=== PATIENT | male | born 1985 | race African-American/Black ===

== ENCOUNTER 2020-06-05 07:52 | Emergency (ER) | payer MEDICAID ==
[~2020-06-05] VITALS: Ht 185.4 cm; Wt 82.0 kg
[2020-06-05 07:54] VITALS: BP 148/88
[2020-06-05] MEDS ORDERED: ALBUTEROL (0.083%) 2.5MG/3ML NEB HHN STA (08:18)
[2020-06-05] MEDS ORDERED: PREDNISONE 20MG TABLET PO STA (08:18)
[2020-06-05] MEDS ORDERED: IPRATROPIUM BROMIDE (0.02%) 0.5MG/2.5ML NEB HHN STA (08:18)
[2020-06-05] MEDS ORDERED: ALBU6.7H9 INH (09:47)
[2020-06-05] MEDS ORDERED: P20 MT (09:47)
== END 2020-06-05 09:57 | disposition home or self-care (01) ==
LOC: ER 08:08
DX: J45.901 Unspecified asthma with (acute) exacerbation (principal); F17.210 Nicotine dependence, cigarettes, uncomplicated
CPT/HCPCS: 94644; 99285; 99406; J7512; Z7610